=== PATIENT | female | born 1990 | race Caucasian/White ===

== ENCOUNTER 2018-10-29 05:44 | Inpatient (IN) | payer OTHER ==
[2018-10-23 11:49] VITALS: BMI 47.6
[~2018-10-29 05:44] MED LIST: BUPIVACAINE HCL/PF 0.25% (2.5MG/ML) 10 ML VIAL IJ ONE
[2018-10-29] MEDS ORDERED: BUPIVACAINE HCL/PF (5 MG/ML) 30 ML VIAL IJ ONE (07:34)
[2018-10-29] MEDS ORDERED: MIDAZOLAM HCL 2 MG/2 ML SINGLE DOSE VIAL ONE ×2 (07:34→07:59)
[2018-10-29] MEDS ORDERED: BUPIVACAINE HCL/PF 2.5 MG/ML - 30 ML VIAL IJ ONE (07:42)
[2018-10-29] MEDS ORDERED: ALBUTEROL SO4 0.083% IH SOL 2.5 MG/3 ML VIAL.NEB. NEB PRN (07:51)
--- NOTE | 2018-10-29 07:51 | HP ---
Admitting History and Physical - Admission Chief Complaint: Morbid obesity History Source: Patient Limitations to Obtaining History: No Limitations - Past Medical History Cardiovascular: Yes: HTN Pulmonary: Yes: Asthma ...LMP: 10/09/18 - Smoking History Smoking history: Never smoked Have you smoked in the past 12 months: No - Alcohol/Substance Use Hx Alcohol Use: Yes (SOCIAL) Home Medications - Allergies Allergies/Adverse Reactions: Allergies Allergy/AdvReac Type Severity Reaction Status Date / Time No Known Allergies Allergy Verified 10/23/18 11:42 - Home Medications Home Medications: Ambulatory Orders Albuterol 0.083% Nebulizer Meggan [Ventolin 0.083% Nebulizer Soln -] 1 amp NEB PRN PRN 10/23/18 Amlodipine Besylate 5 mg PO DAILY 10/23/18 Family Disease History - Family Disease History Family History: Denies Review of Systems - Review of Systems Constitutional: denies: Chills, Fever HENT: reports: No Symptoms Neck: reports: No Symptoms Cardiovascular: reports: No Symptoms Respiratory: reports: No Symptoms Gastrointestinal: reports: No Symptoms Neurological: reports: No Symptoms Pain Intensity: 0 Physical Examination Vital Signs: Vital Signs Temperature 97.9 F 10/29/18 06:53 Pulse Rate 86 10/29/18 06:53 Respiratory Rate 18 10/29/18 06:53 Blood Pressure 150/102 H 10/29/18 06:53 O2 Sat by Pulse Oximetry (%) 100 10/29/18 06:57 Constitutional: Yes: Calm Neck: Yes: WNL Cardiovascular: Yes: WNL Respiratory: Yes: Regular Gastrointestinal: Yes: Soft, Abdomen, Obese. No: Tenderness Neurological: Yes: Alert, Oriented Problem List - Problems (1) Morbid obesity due to excess calories Code(s): E66.01 - MORBID (SEVERE) OBESITY DUE TO EXCESS CALORIES (2) BMI 45.0-49.9, adult Code(s): Z68.42 - BODY MASS INDEX (BMI) 45.0-49.9, ADULT (3) Hypertension Code(s): I10 - ESSENTIAL (PRIMARY) HYPERTENSION Qualifiers: Hypertension type: unspecified Qualified Code(s): I10 - Essential (primary ) hypertension Assessment/Plan Laparoscopic possible open vertical sleeve gastrectomy, possible liver biopsy, possible upper endoscopy
[2018-10-29] MEDS ORDERED: ALBUTEROL SO4 8 GM HFA INHALER IH ONE (07:58)
[2018-10-29] MEDS ORDERED: LIDOCAINE HCL 2% JELLY (5 ML/TUBE) ONE (07:58)
[2018-10-29] MEDS ORDERED: fentaNYL CITRATE 250 MCG/5 ML VIAL ONE (07:58)
[2018-10-29] MEDS ORDERED: SUCCINYLCHOLINE CHLORIDE 200 MG/10 ML VIAL ONE ×2 (07:59→09:21)
[2018-10-29] MEDS ORDERED: ROCURONIUM BROMIDE 50 MG/5 ML VIAL ONE ×2 (07:59→08:14)
[2018-10-29] MEDS ORDERED: PROPOFOL 20 ML ONE ×4 (07:59→09:21)
[2018-10-29] MEDS ORDERED: LIDOCAINE HCL/PF 2% SDV 5ML VIAL ONE (08:00)
[2018-10-29] MEDS ORDERED: KETOROLAC TROMETHAMINE 30 MG/1 ML VIAL ONE (08:19)
[2018-10-29] MEDS ORDERED: ceFAZolin SODIUM 1 GM VIAL ONE (08:19)
[2018-10-29] MEDS ORDERED: ONDANSETRON 4 MG/2 ML VIAL ONE (08:19)
[2018-10-29] MEDS ORDERED: DEXAMETHASONE SOD PHOSPHATE 4 MG/1 ML VIAL ONE (08:19)
[2018-10-29] MEDS ORDERED: hydrALAZINE HCL 20 MG/ML VIAL ONE (08:29)
[2018-10-29] MEDS ORDERED: NEOSTIGMINE METHYLSULFATE 0.5 MG/ML - 10 ML MDV ONE (09:13)
[2018-10-29] MEDS ORDERED: GLYCOPYRROLATE 0.2 MG/1 ML VIAL ONE (09:13)
[2018-10-29] MEDS ORDERED: BUPIVACAINE HCL/PF 0.25% (2.5MG/ML) 10 ML VIAL IJ ONE (09:18)
[2018-10-29] MEDS ORDERED: HYDROmorphone HCL CARPU-JECT 1 MG/1 ML DISP.SYRIN IVPB PRN (09:31)
--- NOTE | 2018-10-29 09:34 | OP ---
Operative Note - Note: Operative Date: 10/29/18 Pre-Operative Diagnosis: Morbid obesity. BMI 47.6. Hypertension Operation: Laparoscopic vertical sleeve gastrectomy. Laparoscopic wedge liver biopsy Post-Operative Diagnosis: Same as Pre-op (as well as hepatomegaly) Surgeon: Luis A Thompson Scenic Designer: Dylon Rand Anesthesia: General Specimens Removed: Greater curvature of stomach. Liver biopsy Estimated Blood Loss (mls): 30 Drains & Tubes with Location: 36 fr bougie
[2018-10-29] MEDS ORDERED: ONDANSETRON 4 MG/2 ML VIAL IVPUSH PRN (09:44)
[2018-10-29] MEDS ORDERED: oxyCODONE HCL 5 MG TABLET PO PRN ×2 (09:44)
[2018-10-29] MEDS ORDERED: PROMETHAZINE HCL 25 MG/1 ML VIAL IVPUSH PRN (09:44)
[2018-10-29] MEDS ORDERED: METOCLOPRAMIDE HCL INJECTION 10 MG/2 ML VIAL IVPUSH SCH (09:45)
[2018-10-29] MEDS ORDERED: ACETAMINOPHEN 1000 MG/100 ML VIAL (NON FORMULARY) IVPB SCH (09:45)
[2018-10-29] MEDS ORDERED: FAMOTIDINE 20 MG PREMIXED IVPB IVPB ONE (10:12)
[2018-10-29 10:33] LABS: ALBUMIN 3.4 g/dl (3.4-5.0); BILIRUBIN,TOTAL 0.5 mg/dl (0.2-1); CALCIUM 8.6 mg/dl (8.5-10); TOT PROT 7.2 g/dl (6.4-8.2)
[2018-10-29 11:39] LABS: HEMATOCRIT 42.9 % (32.4-45.2); HEMOGLOBIN 13.6 GM/dL (10.7-15.3); MCH 25.9 pg (25.7-33.7); MCHC 31.7 g/dl (32.0-36.0); MEAN CELL VOLUME 81.7 fl (80-96); MEAN PLT VOLUME 8.1 fl (7.5-11.1); PLATELET COUNT 285 K/MM3 (134-434); RBC 5.25 M/mm3 (3.60-5.2); WHITE BLOOD COUNT 12.4 K/mm3 (4.0-10.0)
[2018-10-29] MEDS ORDERED: ACETAMINOPHEN 325 MG TABLET (FP) PO SCH (18:00)
[2018-10-29] MEDS: ONDANSETRON 4 MG/2 ML VIAL IVPUSH SCH ×2 (18:05→22:42)
[2018-10-29] MEDS: ACETAMINOPHEN 1000 MG/100 ML VIAL (NON FORMULARY) IVPB SCH (18:06)
[2018-10-29] MEDS: METOCLOPRAMIDE HCL INJECTION 10 MG/2 ML VIAL IVPUSH SCH (18:06)
--- NOTE | 2018-10-29 22:08 | SPEC ---
DATE OF OPERATION: 10/29/[address] PLACE OF SURGERY: [facility], [address] [place] [id number] PREOPERATIVE DIAGNOSES: 1. Morbid obesity. 2. Hypertension. 3. Body mass index of 47.6. POSTOPERATIVE DIAGNOSES: 1. Morbid obesity. 2. Hypertension. 3. Body mass index of 47.6. 4. Hepatomegaly. PROCEDURE: 1. Diagnostic laparoscopy. 2. Laparoscopic vertical sleeve gastrectomy. 3. Laparoscopic wedge liver biopsy. SPECIMEN: 1. Greater curvature of the stomach. 2. Liver biopsy. ESTIMATED BLOOD LOSS: 30 mL. DRAINS: None. ANESTHESIA: GET. BOUGIE: Size 36-English. REASON FOR PROCEDURE: This is a 28-year-old female who presented to the office for weight loss options. After describing different options, she decided to proceed with a laparoscopic, possible open vertical sleeve gastrectomy, possible liver biopsy, possible upper endoscopy. RISKS AND BENEFITS: After describing the different options for weight loss management, the patient decided to proceed with a laparoscopic, possible open vertical sleeve gastrectomy. The patient was seen by the respective subspecialties and cleared for surgery. The risks and benefits of the procedure were explained. These included bleeding, infection, hernia, KS, DVT, PE, injury to surrounding structures including the liver, colon, bowel, spleen, esophagus, vessel injury, nerve injury, weight regain, gastric leak, staple line leak, sleeve leak, obstruction, vitamin deficiency, hair loss and as some of the possible complications. The patient understood and signed informed consent. DESCRIPTION OF PROCEDURE: The patient was placed supine on the operating room table. The patient underwent general endotracheal intubation. The arms were brought out at 90 degrees and secured. A footboard was placed and the legs were secured laterally with padding. The abdomen was prepped and draped in the usual sterile fashion. A timeout was performed. An incision was made in the left upper quadrant and a Veress needle inserted. Pneumoperitoneum was established. Subsequently, the Veress needle was removed and a 5-mm trocar was placed under direct visualization with the laparoscope. The laparoscopic camera was then inserted and inspection of the abdominal cavity was performed. An incision was then made in the supraumbilical area and a 15-mm trocar was placed under direct visualization. A 5-mm trocar was then placed in the right upper quadrant and a 5-mm trocar was placed below the left subcostal margin. A stab wound was made in the subxiphoid area and a Latonia clamp inserted and removed to dilate the tract. A Alecia liver retractor was inserted. The post was secured at the bedside by the nursing staff. The patient was placed in steep reverse Trendelenburg position and the Alecia liver retractor was used to secure the liver towards the anterior abdominal wall. The pylorus was identified and 6 cm proximal to it, the lesser sac was entered using the LigaSure device. All lateral attachments to the greater curvature of the stomach, including the short gastric vessels, were ligated using the LigaSure device toward the gastrosplenic and gastrophrenic ligaments. Once this was done in its entirety, it was confirmed that all tubes within the nasal or oropharyngeal cavity, including a temperature probe were removed by Anesthesia. The bougie was then inserted by Anesthesia. Transection of the stomach was then begun staying adjacent to the bougie but away from the angularis. Transection of the stomach was performed near the portion of the stomach where the lesser sac was entered. Two laparoscopic Endo-BRYAN black katrina were used at this location. Laparoscopic Endo BRYAN purple staple loads were then used for the remainder of the transection until the greater curvature of the stomach was fully transected. This was done staying close to the bougie. Care was taken to stay away from the angle of His cephalad. The staple line was then inspected. Hemostasis was identified. A leak test was then performed. It was clamped distally to the staple line. Irrigation solution was placed in the left upper quadrant and air was insufflated by Anesthesia into the sleeve. No leaks were identified. No obstruction was identified. This was done through the entirety of the staple line. The stomach was suctioned and the bougie removed fully intact under direct visualization. At this point, the irrigation solution was suctioned and again, hemostasis was noted. A wedge liver biopsy was then performed. The left lobe of the liver was identified. A portion of the edge of the left lobe of the liver was grasped. Using electrocautery, a wedge of the left liver was excised. The specimen was removed and sent off the field. Hemostasis of the wedge liver biopsy site was attained and noted using electrocautery. The 15-mm supraumbilical trocar was then removed and the greater curvature specimen removed from the site using a sponge stick mccann. A Pedro Luis-Ace device was then used to close the fascia with a 0 Vicryl suture at the site. Again, hemostasis was noted. The Alecia liver retractor was then removed under direct visualization. Pneumoperitoneum was desufflated. Hemostasis was noted at all incision sites and Marcaine was injected at all incision sites. A 3-0 Vicryl suture was used to close the deep subcutaneous tissue at the 15-mm incision site. All incision sites were closed using 4-0 Biosyn. Sterile dressings were applied. The patient tolerated the procedure well and was transferred to the recovery room in stable condition. Caitlin [id number]
[2018-10-29] MEDS: FAMOTIDINE 20 MG/50 ML IVPB 20 MG/50 ML MG IVPB SCH (22:42)
[2018-10-29] MEDS: ENOXAPARIN NA (PORCINE) 40 MG/0.4 ML DISP.SYRIN SQ SCH (22:42)
[2018-10-30] MEDS: ACETAMINOPHEN 1000 MG/100 ML VIAL (NON FORMULARY) IVPB SCH ×2 (00:07→05:25)
[2018-10-30] MEDS: METOCLOPRAMIDE HCL INJECTION 10 MG/2 ML VIAL IVPUSH SCH ×3 (00:07→12:27)
[2018-10-30] MEDS: ONDANSETRON 4 MG/2 ML VIAL IVPUSH SCH ×5 (02:00→15:37)
[2018-10-30 06:41] VITALS: TEMP 98.7
[2018-10-30] MEDS ORDERED: ALBUTEROL SO4 0.083% IH SOL 2.5 MG/3 ML VIAL.NEB. NEB PRN (08:26)
[2018-10-30] MEDS: SODIUM CHLORIDE 1,000 ML IV SCH ×2 (08:39→12:27)
[2018-10-30] MEDS: FAMOTIDINE 20 MG/50 ML IVPB 20 MG/50 ML MG IVPB SCH ×2 (08:39→09:41)
[2018-10-30 09:01] LABS: ALBUMIN 3.1 g/dl (3.4-5.0); BILIRUBIN,TOTAL 0.7 mg/dl (0.2-1); CALCIUM 8.3 mg/dl (8.5-10); POTASSIUM 3.9 mmol/L (3.5-5.1); TOT PROT 6.6 g/dl (6.4-8.2)
[2018-10-30] MEDS: ENOXAPARIN NA (PORCINE) 40 MG/0.4 ML DISP.SYRIN SQ SCH (09:36)
[2018-10-30] MEDS ORDERED: amLODIPine BESYLATE 5 MG TABLET (FP) PO SCH (10:00)
[2018-10-30 10:13] LABS: HEMATOCRIT 41.1 % (32.4-45.2); HEMOGLOBIN 12.9 GM/dL (10.7-15.3); MCH 25.6 pg (25.7-33.7); MCHC 31.4 g/dl (32.0-36.0); MEAN CELL VOLUME 81.6 fl (80-96); MEAN PLT VOLUME 8.1 fl (7.5-11.1); PLATELET COUNT 278 K/MM3 (134-434); RBC 5.04 M/mm3 (3.60-5.2); RDW 14.9 % (11.6-15.6); WHITE BLOOD COUNT 11.4 K/mm3 (4.0-10.0)
[2018-10-30 12:35] VITALS: BP 139/89; PULSE 93
[2018-10-30] MEDS ORDERED: oxyCODONE HCL 5 MG TABLET PO PRN (12:41)
--- NOTE | 2018-10-30 12:42 | PN ---
Progress Note (short form) - Note Progress Note: POD 1 Pain / nausea controlled Vital Signs Period Temp Pulse Resp BP Sys/Carbajal Pulse Ox Last 24 Hr 97.8 F-99.2 F 93-97 17-18 137-156/88-94 96-98 Abd soft CBC,CMP WBC 11.4 K/mm3 (4.0-10.0) H 10/30/18 07:50 RBC 5.04 M/mm3 (3.60-5.2) 10/30/18 07:50 Hgb 12.9 GM/dL (10.7-15.3) 10/30/18 07:50 Hct 41.1 % (32.4-45.2) 10/30/18 07:50 MCV 81.6 fl (80-96) 10/30/18 07:50 MCH 25.6 pg (25.7-33.7) L 10/30/18 07:50 MCHC 31.4 g/dl (32.0-36.0) L 10/30/18 07:50 RDW 14.9 % (11.6-15.6) 10/30/18 07:50 Plt Count 278 K/MM3 (134-434) 10/30/18 07:50 MPV 8.1 fl (7.5-11.1) 10/30/18 07:50 Sodium 134 mmol/L (136-145) L 10/30/18 07:50 Potassium 3.9 mmol/L (3.5-5.1) 10/30/18 07:50 Chloride 101 mmol/L (98-107) 10/30/18 07:50 Carbon Dioxide 21 mmol/L (21-32) 10/30/18 07:50 Anion Gap 12 MMOL/L (8-16) 10/30/18 07:50 BUN 15 mg/dl (7-18) 10/30/18 07:50 Creatinine 1.0 mg/dl (0.55-1.3) 10/30/18 07:50 Est GFR (CKD-EPI)AfAm 90.04 10/30/18 07:50 Est GFR (CKD-EPI)NonAf 77.69 10/30/18 07:50 Random Glucose 90 mg/dl (74-106) 10/30/18 07:50 Calcium 8.3 mg/dl (8.5-10) L 10/30/18 07:50 Total Bilirubin 0.7 mg/dl (0.2-1) 10/30/18 07:50 AST 27 U/L (15-37) 10/30/18 07:50 ALT 28 U/L (13-61) 10/30/18 07:50 Alkaline Phosphatase 93 U/L (45-117) D 10/30/18 07:50 Total Protein 6.6 g/dl (6.4-8.2) 10/30/18 07:50 Albumin 3.1 g/dl (3.4-5.0) L 10/30/18 07:50 UGI: no leak/obstruction Clears Discharge home Problem List - Problems (1) Morbid obesity due to excess calories Code(s): E66.01 - MORBID (SEVERE) OBESITY DUE TO EXCESS CALORIES (2) BMI 45.0-49.9, adult Code(s): Z68.42 - BODY MASS INDEX (BMI) 45.0-49.9, ADULT (3) Hypertension Code(s): I10 - ESSENTIAL (PRIMARY) HYPERTENSION Qualifiers: Hypertension type: unspecified Qualified Code(s): I10 - Essential (primary ) hypertension
[2018-10-30] MEDS ORDERED: SODIUM CHLORIDE 1,000 ML IV SCH (12:45)
--- NOTE | 2018-10-31 15:41 | PATH ---
Surgical Pathology Report Patient Name: NGUYEN ALONZO Med. Rec. #: [id number] /Age/Gender: 1990 (Age: 28) / F Account: [id number] Location: [facility] MED-SURG Taken: 10/29/2018 Received: 10/29/2018 Reported: 10/31/2018 Physicians: Luis A Thompson M.D. Specimen(s) Received A: GREATER CURVATURE STOMACH B: LIVER BIOPSY Clinical History Morbid obesity Final Diagnosis A. STOMACH, GREATER CURVATURE, LAPAROSCOPIC VERTICAL SLEEVE GASTRECTOMY: PORTION OF STOMACH WITH MILD CHRONIC GASTRITIS. IMMUNOHISTOCHEMICAL STAIN FOR H. PYLORI IS NEGATIVE. B. LIVER, BIOPSY: LIVER PARENCHYMA WITH MILD PATCHY STEATOSIS (~20%). NO INCREASE IN IRON AND FIBROSIS ON PERFORMED SPECIAL STAINS (IRON AND TRICHROME). Electronically Signed Ashley Massey M.D. Gross Description A. Received in formalin, labeled "greater curvature of stomach," is a 92 gram, 20.0 x 2.5 x 2.5 cm. portion of stomach with a stapled margin of resection. The serosa is martinez-kelsey with minimal attached fat. The mucosa is martinez-pink with normal folds. No mucosal masses are identified. Environmental Protection Geologist sections are submitted in one cassette. B. Received in formalin labeled "liver biopsy," is a 2.5 x 1.5 x 0.6 cm martinez, irregular portion of tissue, consistent with a liver biopsy. The specimen is bisected and entirely submitted in one cassette. /10/30/2018 saudi10/30/2018
== END 2018-10-30 15:57 | disposition home or self-care (01) | DRG 403 ==
LOC: FM/S 05:44
PROVIDERS: ADMIT Surgery; ATTEND Surgery
PROC: 0DB64Z3 Excision of Stomach, Percutaneous Endoscopic Approach, Vertical (ICD-10-PCS; principal; 2018-10-29 08:32)
PROC: 0FB24ZX Excision of Left Lobe Liver, Percutaneous Endoscopic Approach, Diagnostic (ICD-10-PCS; 2018-10-29 08:32)
DX: E66.01 Morbid (severe) obesity due to excess calories (principal); Z68.42 Body mass index [BMI] 45.0-49.9, adult; R16.0 Hepatomegaly, not elsewhere classified; I10 Essential (primary) hypertension; J45.909 Unspecified asthma, uncomplicated
CPT/HCPCS: 36415; 74241-TC-FY; 80053; 84703; 85027; 88305-TC; 94760; J0131; J7030